=== PATIENT | female | born 1995 | race Caucasian/White ===

== ENCOUNTER 2019-03-31 13:06 | Emergency (ER) | payer MEDICAID ==
[~2019-03-31] VITALS: Ht 170.2 cm; Wt 130.0 kg
[2019-03-31 13:15] VITALS: BP 129/94
--- NOTE | 2019-03-31 13:54 | NUR ---
PT. HAS C/O LEFT FOOT PAIN UP TO HER KNEE. PT. STATES SHE FELL AND TWISTED HER LEG. SHE ALSO STATES SHE HAS DM. NO OBVIOUS DEFORMITY NOTED. SUPERFICIAL SCAPES TO LEFT KNEE /GRAHAM NOTED CMS INTACT
[2019-03-31] MEDS ORDERED: METF500T17 PO (14:06)
[2019-03-31] MEDS ORDERED: BACITRACIN ZINC OINT 500U/GM, 0.9 GM ONE ×2 (14:47→15:10)
--- NOTE | 2019-03-31 15:01 | NUR ---
WOUNDS CLEANSED AND DRESSED BY EMT. ALSO PROVIDED W/ CRUTCHES W/ SAFE REPEAT DEMONSTRATION
[2019-03-31] MEDS ORDERED: HYDROcodone/APAP 5/325 TABLET ONE (15:11)
--- NOTE | 2019-03-31 15:13 | NUR ---
MEDICATED PER EMAR FOR LLE PAIN AT 8/10 ABRASIONS CLEANSED AND DRESSED W/ BACITRACIN/BAND AID LLE SPLINTED BY TUFTER W/ GOOD CMS POST SPLINTING WELL
[2019-03-31] MEDS ORDERED: HYDROcodone/APAP 5/325 TABLET PO ONE (15:30)
== END 2019-03-31 15:23 | disposition home or self-care (01) ==
LOC: ED 15:17
DX: S92.415A Nondisplaced fracture of proximal phalanx of left great toe, initial encounter for closed fracture (principal); S93.402A Sprain of unspecified ligament of left ankle, initial encounter; S80.212A Abrasion, left knee, initial encounter; S80.812A Abrasion, left lower leg, initial encounter; S90.812A Abrasion, left foot, initial encounter; E11.9 Type 2 diabetes mellitus without complications; W01.0XXA Fall on same level from slipping, tripping and stumbling without subsequent striking against object, initial encounter; Y93.01 Activity, walking, marching and hiking; Y92.828 Other wilderness area as the place of occurrence of the external cause; Y99.8 Other external cause status
CPT/HCPCS: 29515; 99283